=== PATIENT | male | born 1985 | race Caucasian/White ===

== ENCOUNTER 2019-04-10 14:50 | Outpatient (CLI) | payer MEDICARE | END 2019-04-10 14:51 | disposition home or self-care (01) | LOC: LAB.S 14:50 | PROVIDERS: ATTEND Family Medicine | DX: Z53.9 Procedure and treatment not carried out, unspecified reason (principal) ==

== ENCOUNTER 2019-04-11 08:00 | Outpatient (CLI) | payer MEDICARE ==
[2019-04-11 17:22] LABS: BASOPHILS # (AUTO) 0.1 10^3/uL (0.0-0.1); BASOPHILS % (AUTO) 0.6 %; EOSINOPHILS # (AUTO) 0.1 10^3/uL (0.0-0.7); EOSINOPHILS % (AUTO) 1.1 %; HGB - HEMOGLOBIN 15.5 g/dL (14.0-18.0); LYMPHOCYTES # (AUTO) 2.3 10^3/uL (1.5-3.5); LYMPHOCYTES % (AUTO) 28.3 %; MEAN CORPUSCULAR HEMOGLOBIN 30.3 pg (27.0-31.0); MEAN CORPUSCULAR VOLUME 91.8 fL (80.0-94.0); MEAN PLATELET VOLUME 10.4 fL (7.4-11.4); MONOCYTES # (AUTO) 0.5 10^3/uL (0.0-1.0); MONOCYTES % (AUTO) 6.4 %; NEUTROPHILS # (AUTO) 5.1 10^3/uL (1.5-6.6); PLT - PLATELET COUNT 358 10^3/uL (130-450); RED BLOOD COUNT 5.12 10^6/uL (4.70-6.10); WHITE BLOOD COUNT 8.1 x10^3/uL (4.8-10.8)
[2019-04-11 17:23] LABS: BILIRUBIN,URINE NEGATIVE (NEGATIVE); GLUCOSE, URINE (UA) 100 mg/dL (NEGATIVE); KETONES,URINE (UA) NEGATIVE (NEGATIVE); LEUKOCYTE ESTERASE, URINE NEGATIVE (NEGATIVE); NITRITE,URINE NEGATIVE (NEGATIVE); OCCULT BLOOD,URINE NEGATIVE (NEGATIVE); PROTEIN,URINE TRACE mg/dL (NEGATIVE); UROBILINOGEN,URINE 0.2 (NORMAL) E.U./dL (NORMAL)
[2019-04-11 17:43] LABS: CLARITY,URINE CLEAR (CLEAR)
[2019-04-11 18:03] LABS: HB2 TOTAL 15.6 g/dL; HEMOGLOBIN A1C 1.4 g/dL; HEMOGLOBIN A1C % 10.4 % (4.6-6.2)
[2019-04-11 18:19] LABS: ALBUMIN 4.2 g/dL (3.2-5.5); ALBUMIN/GLOBULIN RATIO 1.1 (1.0-2.2); ALKALINE PHOSPHATASE 87 IU/L (42-121); ALT ALANINE AMINOTRANSFERASE 47 IU/L (10-60); AST ASPARTATE AMINOTRANSFERASE 27 IU/L (10-42); BUN - BLOOD UREA NITROGEN 12 mg/dL (6-20); CALCIUM 9.1 mg/dL (8.5-10.3); CARBON DIOXIDE - CO2 27 mmol/L (21-32); CHLORIDE 101 mmol/L (101-111); CHOL/HDL RATIO 7.8 (<5.0); CHOLESTEROL 288 mg/dL; CREATININE 0.8 mg/dL (0.6-1.2); GFR - MDRD 110 (>89); GLUCOSE 215 mg/dL (70-100); HDL CHOLESTEROL 37 mg/dL; LDL CHOLESTEROL,CALCULATED 201 mg/dL; LDL/HDL RATIO 5.4 (<3.6); SODIUM 137 mmol/L (135-145); VLDL CHOLESTEROL 50 mg/dL
== END 2019-04-11 23:59 | disposition home or self-care (01) ==
LOC: LAB.S 08:00
PROVIDERS: ATTEND Family Medicine
DX: I10 Essential (primary) hypertension (principal); Q23.1 Congenital insufficiency of aortic valve; E66.9 Obesity, unspecified
CPT/HCPCS: 36415; 80053; 80061; 81001; 81003; 83036; 83721; 84443; 85025; 87086

== ENCOUNTER 2019-06-21 16:20 | Outpatient (CLI) | payer SELFPAY | END 2019-06-21 16:21 | disposition home or self-care (01) | LOC: COV 16:20 | PROVIDERS: ATTEND Family Medicine | DX: R05 Cough (principal); R50.9 Fever, unspecified | CPT/HCPCS: 81599 ==

== ENCOUNTER 2020-06-28 02:32 | Outpatient (CLI) | payer SELFPAY | END 2020-06-28 02:33 | disposition critical access hospital (66) | LOC: EMS 02:32 | DX: R06.02 Shortness of breath (principal); R06.2 Wheezing; R11.10 Vomiting, unspecified; R07.9 Chest pain, unspecified | CPT/HCPCS: A0425; A0429 ==

== ENCOUNTER 2020-06-28 03:09 | Emergency (ER) | payer SELFPAY ==
--- NOTE | 2020-06-28 03:20 | ED Physician Documentation ---
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 No: Fever, Hemoptysis, Wheezing, Bilateral edema, Unilateral edema Similar symptoms before: Has not had sx before Recently seen: Not recently seen - Additional information Additional information: BIBA. 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 He became dyspneic when walking to the bathroom and this rapidly worsened when he was walking back to his bedroom after using the bathroom. He also developed midline mid/upper anterior chest pain when walking back from the bathroom. He denies h/o similar symptoms. EMS found patient to be tachycardic and tachypneic with 89% pulse ox on room air. Review of Systems Constitutional: reports: Sweats. denies: Fever, Chills Eyes: reports: Reviewed and negative Ears: reports: Reviewed and negative Nose: reports: Reviewed and negative Throat: reports: Reviewed and negative Cardiac: reports: Chest pain / pressure. denies: Palpitations, Pedal edema, Calf pain Respiratory: reports: Dyspnea, Cough. denies: Hemoptysis, Wheezing GI: reports: Nausea, Vomiting. denies: Abdominal Pain : reports: Reviewed and negative Skin: reports: Reviewed and negative Musculoskeletal: reports: Reviewed and negative Neurologic: reports: Reviewed and negative PD PAST MEDICAL HISTORY - Past Medical History Past Medical History: No - Past Surgical History Past Surgical History: No - Present Medications Home Medications: Ambulatory Orders Medication Instructions Recorded Confirmed No Known Home Medications 06/28/20 06/28/20 - Allergies Allergies/Adverse Reactions: Allergies Allergy/AdvReac Type Severity Reaction Status Date / Time No Known Drug Allergies Allergy Verified 06/28/20 03:31 - Living Situation Living Arrangement: reports: At home - Social History Does the pt smoke?: No PD ED PE NORMAL - Vitals Vital signs reviewed: Yes - General General: Alert and oriented X 3, Other (obese male that appears uncomfortable, diaphoretic and tachypneic. ) - HEENT HEENT: Moist mucous membranes - Neck Neck: Supple, no meningeal sign - Respiratory Respiratory: No respiratory distress - Abdomen Abdomen: Soft, Non tender, Non distended - Derm Derm: Normal color, Warm and dry - Extremities Extremities: No edema - Neuro Neuro: Alert and oriented X 3 PD ED PE EXPANDED - Cardiac Cardiac: Tachy, Regular Rhythm - Respiratory Respiratory: Rhonchi (bibasilar) Results - Vitals Vitals: Vital Signs - 24 hr 06/28/20 06/28/20 06/28/20 03:10 03:15 03:30 Temperature 36.8 C Heart Rate 141 H 133 H Respiratory 26 H 23 Rate Blood Pressure 225/158 H 218/149 H Blood Pressure 218/149 H [Left] Blood Pressure 199/139 H [Right] O2 Saturation 94 93 06/28/20 06/28/20 06/28/20 03:50 04:02 04:18 Temperature 36.9 C Heart Rate 126 H 115 H 109 H Respiratory 25 H 26 H 21 Rate Blood Pressure 218/149 H 199/139 H 177/132 H Blood Pressure [Left] Blood Pressure [Right] O2 Saturation 96 97 100 06/28/20 06/28/20 06/28/20 04:26 04:51 05:02 Temperature 36.8 C Heart Rate 111 H 111 H 97 Respiratory 22 20 20 Rate Blood Pressure 196/129 H 217/135 H 146/110 H Blood Pressure [Left] Blood Pressure [Right] O2 Saturation 95 96 97 06/28/20 06/28/20 06/28/20 05:10 05:19 05:20 Temperature Heart Rate 94 91 88 Respiratory 19 22 19 Rate Blood Pressure 154/112 H 148/106 H 158/114 H Blood Pressure [Left] Blood Pressure [Right] O2 Saturation 97 98 100 06/28/20 06/28/20 06/28/20 05:46 06:01 06:25 Temperature 36.7 C 36.1 C L Heart Rate 84 92 83 Respiratory 15 20 16 Rate Blood Pressure 153/103 H 154/113 H 154/113 H Blood Pressure [Left] Blood Pressure [Right] O2 Saturation 97 97 96 06/28/20 06/28/20 06/28/20 07:21 07:22 07:29 Temperature Heart Rate 93 87 88 Respiratory 16 16 15 Rate Blood Pressure 139/100 H 139/100 H 135/99 H Blood Pressure [Left] Blood Pressure [Right] O2 Saturation 99 97 97 06/28/20 06/28/20 07:30 08:13 Temperature Heart Rate 87 88 Respiratory 15 14 Rate Blood Pressure 135/99 H 153/99 H Blood Pressure [Left] Blood Pressure [Right] O2 Saturation 98 96 Oxygen O2 Source Room air Oxygen Flow Rate 4 - EKG (time done) No standard instances Rate: Rate (enter#) (141) Rhythm: Sinus tachycardia [place]: Normal Intervals: Normal [place] QRS: LVH Ischemia: ST elevation c/w repol Compare to prior EKG: Old EKG unavailable - Labs Labs: Laboratory Tests 06/28/20 06/28/20 06/28/20 03:20 03:36 03:36 WBC 13.2 H RBC 5.52 Hgb 16.3 Hct 47.9 MCV 86.8 MCH 29.5 MCHC 34.0 RDW 12.4 Plt Count 376 MPV 9.6 Neut # (Auto) 9.1 H Lymph # (Auto) 3.0 [place] # (Auto) 0.8 Eos # (Auto) 0.2 Baso # (Auto) 0.1 Absolute Nucleated RBC 0.00 Nucleated RBC % 0.0 Sodium 137 Potassium 3.6 Chloride 99 L Carbon Dioxide 24 Anion Gap 14.0 H BUN 21 H Creatinine 1.0 Estimated GFR (MDRD) 85 L Glucose 332 H Calcium 10.1 Total Bilirubin 0.9 AST 28 ALT 42 Alkaline Phosphatase 106 Troponin I High Sens B-Natriuretic Peptide Total Protein 8.9 H Albumin 4.5 Globulin 4.4 H Albumin/Globulin Ratio 1.0 Lipase 36 TSH Urine Color YELLOW Urine Clarity CLEAR Urine pH 7.0 Ur Specific [place] 1.020 Urine Protein 30 H Urine Glucose (UA) >=1000 H Urine Ketones NEGATIVE Urine Occult Blood NEGATIVE Urine Nitrite NEGATIVE Urine Bilirubin NEGATIVE Urine Urobilinogen 0.2 (NORMAL) Ur Leukocyte Esterase NEGATIVE Urine RBC None Seen Urine WBC 0-3 Ur Squamous Epith Cells RARE Squamous Amorphous Sediment Rare Urine Bacteria Rare Ur Microscopic Review INDICATED Urine Culture Comments NOT INDICATED Nasal Adenovirus (PCR) Nasal B. parapertussis DNA (PCR) Nasal Coronavir 229E PCR Nasal Coronavir HKU1 PCR Nasal Coronavir NL63 PCR Nasal Coronavir OC43 PCR Nasal Enterovir/Rhinovir PCR Nasal Influenza B PCR Nasal Influenza A PCR Nasal Parainfluen 1 PCR Nasal Parainfluen 2 PCR Nasal Parainfluen 3 PCR Nasal Parainfluen 4 PCR Nasal RSV (PCR) Nasal B.pertussis DNA PCR Nasal C.pneumoniae (PCR) Damir Human Metapneumo PCR Nasal M.pneumoniae (PCR) Nasal SARS-CoV-2 (PCR) Serum Ketones NEGATIVE 06/28/20 06/28/20 06/28/20 03:36 03:36 03:36 WBC RBC Hgb Hct MCV MCH MCHC RDW Plt Count MPV Neut # (Auto) Lymph # (Auto) [place] # (Auto) Eos # (Auto) Baso # (Auto) Absolute Nucleated RBC Nucleated RBC % Sodium Potassium Chloride Carbon Dioxide Anion Gap BUN Creatinine Estimated GFR (MDRD) Glucose Calcium Total Bilirubin AST ALT Alkaline Phosphatase Troponin I High Sens 19.9 H* B-Natriuretic Peptide 165 H Total Protein Albumin Globulin Albumin/Globulin Ratio Lipase TSH 3.80 Urine Color Urine Clarity Urine pH Ur Specific [place] Urine Protein Urine Glucose (UA) Urine Ketones Urine Occult Blood Urine Nitrite Urine Bilirubin Urine Urobilinogen Ur Leukocyte Esterase Urine RBC Urine WBC Ur Squamous Epith Cells Amorphous Sediment Urine Bacteria Ur Microscopic Review Urine Culture Comments Nasal Adenovirus (PCR) Nasal B. parapertussis DNA (PCR) Nasal Coronavir 229E PCR Nasal Coronavir HKU1 PCR Nasal Coronavir NL63 PCR Nasal Coronavir OC43 PCR Nasal Enterovir/Rhinovir PCR Nasal Influenza B PCR Nasal Influenza A PCR Nasal Parainfluen 1 PCR Nasal Parainfluen 2 PCR Nasal Parainfluen 3 PCR Nasal Parainfluen 4 PCR Nasal RSV (PCR) Nasal B.pertussis DNA PCR Nasal C.pneumoniae (PCR) Damir Human Metapneumo PCR Nasal M.pneumoniae (PCR) Nasal SARS-CoV-2 (PCR) Serum Ketones 06/28/20 03:37 WBC RBC Hgb Hct MCV MCH MCHC RDW Plt Count MPV Neut # (Auto) Lymph # (Auto) [place] # (Auto) Eos # (Auto) Baso # (Auto) Absolute Nucleated RBC Nucleated RBC % Sodium Potassium Chloride Carbon Dioxide Anion Gap BUN Creatinine Estimated GFR (MDRD) Glucose Calcium Total Bilirubin AST ALT Alkaline Phosphatase Troponin I High Sens B-Natriuretic Peptide Total Protein Albumin Globulin Albumin/Globulin Ratio Lipase TSH Urine Color Urine Clarity Urine pH Ur Specific [place] Urine Protein Urine Glucose (UA) Urine Ketones Urine Occult Blood Urine Nitrite Urine Bilirubin Urine Urobilinogen Ur Leukocyte Esterase Urine RBC Urine WBC Ur Squamous Epith Cells Amorphous Sediment Urine Bacteria Ur Microscopic Review Urine Culture Comments Nasal Adenovirus (PCR) NOT DETECTED Nasal B. parapertussis DNA (PCR) NOT DETECTED Nasal Coronavir 229E PCR NOT DETECTED Nasal Coronavir HKU1 PCR NOT DETECTED Nasal Coronavir NL63 PCR NOT DETECTED Nasal Coronavir OC43 PCR NOT DETECTED Nasal Enterovir/Rhinovir PCR NOT DETECTED Nasal Influenza B PCR NOT DETECTED Nasal Influenza A PCR NOT DETECTED Nasal Parainfluen 1 PCR NOT DETECTED Nasal Parainfluen 2 PCR NOT DETECTED Nasal Parainfluen 3 PCR NOT DETECTED Nasal Parainfluen 4 PCR NOT DETECTED Nasal RSV (PCR) NOT DETECTED Nasal B.pertussis DNA PCR NOT DETECTED Nasal C.pneumoniae (PCR) NOT DETECTED [place] Human Metapneumo PCR NOT DETECTED Nasal M.pneumoniae (PCR) NOT DETECTED Nasal SARS-CoV-2 (PCR) NOT DETECTED Serum Ketones - Rads (name of study) chest xray Radiology: Prelim report reviewed, See rad report angio chest CT Radiology: Prelim report reviewed, See rad report PD MEDICAL DECISION MAKING - ED course Complexity details: reviewed results, re-evaluated patient, considered differential, d/w patient ED course: patient is in acute distress on arrival with c/o ongoing anterior chest pain and dyspnea, with severe hypertension; he is also tachycardic and diaphoretic. Pulse ox initially lower 90s but dropped to as low as 87% on 2 liters NC oxygen; pulse ox improved when supplemental oxygen was increased to 4 liters/minute NC. Nitropaste 1" placed to ACW without improvement in hypertension. Subsequently given 40mg lasix. He is given 20mg labetalol and this resulted in dramatic improvement in vital signs, clinical appearance, and resolution of symptoms. CT chest negative for PE but "extensive abnormality within the bilateral lungs suggesting pulmonary edema" (per radiologist's interpretation). Case discussed with Dr. Kenney ([facility] hospitalist), recommends transfer for further evaluation which likely will include cardiac echo (echo services unavailable throughout the weekend at [facility]). Case d/w Dr. Leonardo (hospitalist at [place] [facility]), who accepts transfer to [facility]. - Critical Care Time(min): 40 Time Includes: Direct patient care, Reassess patient, Document care, Coordinate care, Medical consult, See progress note Data interpretation: Labs, Pulse ox, CXR, See progress note Procedures included in critical care time: See progress note Procedures excluded from critical care time: EKG, See progress note Departure - Departure Disposition: 02 Transfer Acute Care Hosp Clinical Impression: Hypertensive urgency Congestive heart failure Qualifiers: Heart failure type: unspecified Heart failure chronicity: unspecified Qualified Code(s): I50.9 - Heart failure, unspecified Condition: Stable Discharge Date/Time: 06/28/20 08:29
[2020-06-28] MEDS ORDERED: NITROGLYCERIN 2% PASTE TOP STA (03:21)
[2020-06-28] MEDS ORDERED: IOPAMIDOL-300 100 ML VIAL ONE (03:33)
[2020-06-28] MEDS ORDERED: SODIUM CHLORIDE 0.9% 1,000 ML IV STA (03:35)
[2020-06-28 03:44] LABS: BILIRUBIN,URINE NEGATIVE (NEGATIVE); GLUCOSE, URINE (UA) >=1000 mg/dL (NEGATIVE); KETONES,URINE (UA) NEGATIVE (NEGATIVE); LEUKOCYTE ESTERASE, URINE NEGATIVE (NEGATIVE); NITRITE,URINE NEGATIVE (NEGATIVE); OCCULT BLOOD,URINE NEGATIVE (NEGATIVE); PROTEIN,URINE 30 mg/dL (NEGATIVE); UROBILINOGEN,URINE 0.2 (NORMAL) E.U./dL (NORMAL)
[2020-06-28 03:46] LABS: CLARITY,URINE CLEAR (CLEAR)
[2020-06-28 03:48] LABS: BASOPHILS # (AUTO) 0.1 10^3/uL (0.0-0.1); BASOPHILS % (AUTO) 0.4 %; EOSINOPHILS # (AUTO) 0.2 10^3/uL (0.0-0.7); EOSINOPHILS % (AUTO) 1.1 %; HCT - HEMATOCRIT 47.9 % (42.0-52.0); HGB - HEMOGLOBIN 16.3 g/dL (14.0-18.0); LYMPHOCYTES % (AUTO) 22.7 %; MEAN CORPUSCULAR HEMOGLOBIN 29.5 pg (27.0-31.0); MEAN CORPUSCULAR VOLUME 86.8 fL (80.0-94.0); MEAN PLATELET VOLUME 9.6 fL (7.4-11.4); MONOCYTES # (AUTO) 0.8 10^3/uL (0.0-1.0); MONOCYTES % (AUTO) 5.7 %; NEUTROPHILS # (AUTO) 9.1 10^3/uL (1.5-6.6); NEUTROPHILS % (AUTO) 69.3 %; PLT - PLATELET COUNT 376 10^3/uL (130-450); RED BLOOD COUNT 5.52 10^6/uL (4.70-6.10); RED CELL DISTRIBUTION WIDTH 12.4 % (12.0-15.0); WHITE BLOOD COUNT 13.2 x10^3/uL (4.8-10.8)
[2020-06-28 03:57] LABS: ALBUMIN 4.5 g/dL (3.2-5.5); ALKALINE PHOSPHATASE 106 IU/L (42-121); ALT ALANINE AMINOTRANSFERASE 42 IU/L (10-60); AST ASPARTATE AMINOTRANSFERASE 28 IU/L (10-42); BILIRUBIN,TOTAL 0.9 mg/dL (0.2-1.0); BUN - BLOOD UREA NITROGEN 21 mg/dL (6-20); CALCIUM 10.1 mg/dL (8.5-10.3); CARBON DIOXIDE - CO2 24 mmol/L (21-32); CHLORIDE 99 mmol/L (101-111); GFR - MDRD 85 (>89); GLUCOSE 332 mg/dL (70-100); LIPASE 36 U/L (22-51); POTASSIUM 3.6 mmol/L (3.5-5.0); SODIUM 137 mmol/L (135-145); TOTAL PROTEIN 8.9 g/dL (6.7-8.2)
[2020-06-28 03:58] LABS: KETONES, SERUM (ACETEST) NEGATIVE (NEGATIVE)
[2020-06-28 04:01] LABS: AMORPHOUS SEDIMENT,UR Rare /LPF; BACTERIA,URINE Rare /HPF (None Seen); RBC,URINE None Seen /HPF (0-5); SQUAMOUS EPITHELIAL CELL,UR RARE Squamous (<= Few); WBC,URINE 0-3 /HPF (0-3)
[2020-06-28] MEDS ORDERED: FUROSEMIDE 40 MG/4 ML VIAL IVP STA (04:14)
[2020-06-28] MEDS ORDERED: IOPAMIDOL-300 100 ML VIAL IVP ONE (04:17)
[2020-06-28] MEDS ORDERED: LABETALOL VIAL 200 MG in SODIUM CHLORIDE 0.9% 160 ML IV STA (04:35)
[2020-06-28 04:38] LABS: CORONAVIRUS 229E-RESP PCR NOT DETECTED; CORONAVIRUS HKU1-RESP PCR NOT DETECTED
[2020-06-28 04:39] LABS: B. PARAPERTUSSIS- RESP PCR PAN NOT DETECTED; B. PERTUSSIS- RESP PCR PANEL NOT DETECTED; C. PNEUMONIAE- RESP PCR PANEL NOT DETECTED; CORONAVIRUS NL63-RESP PCR NOT DETECTED; CORONAVIRUS OC43-RESP PCR NOT DETECTED; HUMAN METAPNEUMOVIRUS NOT DETECTED; INFLUENZA A- RESP PCR PANEL NOT DETECTED; INFLUENZA B - RESP PCR PANEL NOT DETECTED; M. PNEUMONIAE- RESP PCR PANEL NOT DETECTED; PARAINFLUENZA VIRUS 1 NOT DETECTED; PARAINFLUENZA VIRUS 2 NOT DETECTED; PARAINFLUENZA VIRUS 3 NOT DETECTED; PARAINFLUENZA VIRUS 4 NOT DETECTED; RHINOVIRUS/ENTEROVIRUS NOT DETECTED; RSV- RESP PCR PANEL NOT DETECTED; SARS-CoV-2 -RESP PCR PANEL NOT DETECTED
[2020-06-28] MEDS ORDERED: LABETALOL 5 MG/1 ML 20 ML MDV ONE (04:43)
[2020-06-28] MEDS ORDERED: LABETALOL 20 MG/4 ML SYRINGE IVP STA (04:47)
--- OUTSIDE RECORDS SUMMARY | 2020-06-28 06:01 | EXTERNAL MEDICAL SUMMARY RPT | Continuity of Care Document ---
:1985 Demographics Phone Unavailable Preferred Language Unknown Marital Status Unknown Confucianism Affiliation Unknown Race Unknown Ethnic Group Unknown Author Organization [facility] Address [address] [id number] Phone Social History date description facility [phone]
--- NOTE | 2020-06-28 07:41 | CT Report ---
PROCEDURE: ANGIO CHEST W/WO INDICATIONS: Dyspnea, chest pain CONTRAST: IV CONTRAST: Isovue 300 ml: 100 PO CONTRAST: *NO PO CONTRAST TECHNIQUE: After the administration of intravenous contrast, 2 mm thick sections acquired from the pulmonary api kathryn to the posterior costophrenic angles. 3-dimensional maximum intensity projection (MIP) coronal a nd sagittal reformats were then acquired through the thorax. For radiation dose reduction, the follow ing was used: automated exposure control, adjustment of mA and/or kV according to patient size. COMPARISON: None FINDINGS: Image quality: Excellent. Pulmonary arteries: Normal caliber main pulmonary trunk. No central or proximal urinary artery fillin g defect. Respiratory motion artifact limits fine anatomic detail and precludes exclusion of small carrillo bsegmental pulmonary emboli. Lungs and pleura: Bilateral interlobular septal thickening with bilateral predominantly central groun dglass airspace opacity. No focal consolidation or air bronchograms. Mediastinum: Overall heart size is within normal limits. Suggestion of at least mild left ventricular thickening. No pericardial effusion. No findings of right heart strain. Normal caliber thoracic aort a. No threshold enlarged mediastinal or hilar lymph node. Bones and chest wall: Known threshold enlarged axillary lymph node. No suspicious lytic or blastic os seous lesion in the chest wall. Abdomen: Visualized upper abdominal solid organs appear normal in the early arterial phase of enhanc ement. IMPRESSION: No findings of central or large pulmonary embolism. Respiratory motion artifact occludes exclusion of small subsegmental pulmonary embolism. Extensive bilateral groundglass and interstitial opacity. Differential considerations include pulmona ry edema, infection, or another acute interstitial process. Clinical correlation will be needed. Mildly thickened left ventricular wall which may represent hypertrophic cardiomyopathy. No significant change from pulmonary report. Reviewed by: Roscoe Bishop MD on 06/28/2020 7:40 AM PDT Approved by: Roscoe Bishop MD on 06/28/2020 7:40 AM PDT Station ID: [id number]
--- NOTE | 2020-06-28 07:45 | XRAY Report ---
PROCEDURE: Chest 1 View X-Ray INDICATIONS: Chest pain, dyspnea TECHNIQUE: One view of the chest was acquired. COMPARISON: None FINDINGS: Cardiomediastinal silhouette is enlarged, potentially due to AP technique. Increased interstitial and airspace opacities in both lungs, right greater than left. No visible pleural effusion or findings o f pneumothorax. IMPRESSION: Increased cardiomediastinal silhouette, which may be due to technique or borderline cardiomegaly. Increased interstitial and airspace opacities in both lungs are most likely reflective of pulmonary e paige, although infection would cause a similar appearance. No significant change from preliminary report. Reviewed by: Roscoe Bishop MD on 06/28/2020 7:43 AM PDT Approved by: Roscoe Bishop MD on 06/28/2020 7:43 AM PDT Station ID: [id number]
[2020-06-28 08:14] VITALS: BP 153/99
== END 2020-06-28 08:29 | disposition short-term general hospital (02) ==
LOC: EDUNIT# → ED 03:09
DX: I16.0 Hypertensive urgency (principal); I11.0 Hypertensive heart disease with heart failure; I50.9 Heart failure, unspecified; E66.9 Obesity, unspecified; Z20.822 Contact with and (suspected) exposure to COVID-19
CPT/HCPCS: 0202U; 36415; 71045; 71275; 80053; 81001; 82009; 83690; 83880; 84443; 84484; 85025; 93005; 96361; 96374; 96375; 99285; 99291; A9270; Q9967; 81003; 87086

== ENCOUNTER 2020-06-28 08:31 | Outpatient (CLI) | payer SELFPAY | END 2020-06-28 08:32 | disposition short-term general hospital (02) | LOC: EMS 08:31 | PROVIDERS: ATTEND Emergency Medicine | DX: I16.0 Hypertensive urgency (principal); R50.9 Fever, unspecified | CPT/HCPCS: A0425; A0426 ==

== ENCOUNTER 2023-01-11 20:46 | Emergency (ER) | payer MEDICAID, MEDICARE ==
[2023-01-11 21:14] LABS: BASOPHILS % (AUTO) 0.5 %; EOSINOPHILS # (AUTO) 0.1 10^3/uL (0.0-0.7); EOSINOPHILS % (AUTO) 1.8 %; HCT - HEMATOCRIT 43.5 % (42.0-52.0); HGB - HEMOGLOBIN 13.8 g/dL (14.0-18.0); LYMPHOCYTES # (AUTO) 2.2 10^3/uL (1.5-3.5); MEAN CORPUSCULAR HEMOGLOBIN 26.1 pg (27.0-31.0); MEAN CORPUSCULAR HGB CONC 31.7 g/dL (32.0-36.0); MEAN CORPUSCULAR VOLUME 82.4 fL (80.0-94.0); MEAN PLATELET VOLUME 9.3 fL (7.4-11.4); MONOCYTES # (AUTO) 0.5 10^3/uL (0.0-1.0); MONOCYTES % (AUTO) 6.2 %; NEUTROPHILS # (AUTO) 4.9 10^3/uL (1.5-6.6); NEUTROPHILS % (AUTO) 62.1 %; PLT - PLATELET COUNT 328 10^3/uL (130-450); RED BLOOD COUNT 5.28 10^6/uL (4.70-6.10); RED CELL DISTRIBUTION WIDTH 15.2 % (12.0-15.0); WHITE BLOOD COUNT 7.9 x10^3/uL (4.8-10.8)
[2023-01-11 21:30] LABS: ALBUMIN 4.1 g/dL (3.2-5.5); ALBUMIN/GLOBULIN RATIO 1.2 (1.0-2.2); BILIRUBIN,TOTAL 0.6 mg/dL (0.2-1.0); CALCIUM 9.5 mg/dL (8.5-10.3); CREATININE 1.4 mg/dL (0.6-1.3); POTASSIUM 3.8 mmol/L (3.5-4.5); TOTAL PROTEIN 7.6 g/dL (6.4-8.9)
[2023-01-11] MEDS ORDERED: LABETALOL 20 MG/4 ML SYRINGE IVP STA (21:44)
[2023-01-11] MEDS ORDERED: METOPROLOL TARTRATE 50 MG TABLET PO STA (21:44)
--- NOTE | 2023-01-11 22:36 | ED Physician Documentation ---
History of Present Illness - Stated complaint Stated Complaint: LT SIDE NUMBNESS - Chief complaint Chief Complaint: General - History obtained from History obtained from: Patient - Additonal information Additional information: The patient comes to the emergency department chief complaint of episode of left-sided numbness that started couple of hours ago while he was driving his car. He states he had not been feeling any different than usual and the episodes surprised him. He states he had some left facial numbness too but that has since resolved. The patient denies any weakness or difficulty speaking or swallowing. No visual changes. The patient has never had strokelike symptoms before, but was found to have An AK about a year ago. At that time he was also diagnosed with hypertension and diabetes and started on meds for both. However, he states his insurance did not cover the medicines and he could not afford to pay arrieta for them, so he stopped taking his meds. He states he has a history of some slowing of his kidneys, as well. He does not know how high his blood sugar or his blood pressures have been running at home. He denies chest pain or shortness of breath. No change in urine output. He has been able to ambulate, but states that his leg feels "heavy". PD PAST MEDICAL HISTORY - Past Surgical History Past Surgical History: No HEENT: Other - Present Medications Home Medications: Ambulatory Orders Medication Instructions Recorded Confirmed Metoprolol Succinate 100 mg PO DAILY #30 tab 01/12/23 metFORMIN [Glucophage] 500 mg PO BIDWM #60 tablet 01/12/23 - Allergies Allergies/Adverse Reactions: Allergies Allergy/AdvReac Type Severity Reaction Status Date / Time No Known Drug Allergies Allergy Verified 01/11/23 21:00 - Social History Does the pt smoke?: No Smoking Status: Never smoker Does the pt drink ETOH?: No Does the pt have substance abuse?: No - Immunizations Immunizations are current?: Yes - POLST Patient has POLST: No PD ED PE NORMAL - Vitals Vital signs reviewed: Yes - General General: Alert and oriented X 3, No acute distress, Well developed/nourished - HEENT HEENT: Atraumatic, PERRL, EOMI, Moist mucous membranes - Neck Neck: Supple, no meningeal sign - Cardiac Cardiac: RRR, No murmur, Strong equal pulses - Respiratory Respiratory: No respiratory distress, Clear bilaterally - Abdomen Abdomen: Soft, Non tender, Non distended - Derm Derm: Normal color, Warm and dry, No rash - Extremities Extremities: No deformity, No edema - Neuro Neuro: Alert and oriented X 3, tuber helper 2-12 intact, No motor deficit, No sensory deficit, Normal speech, Other (The patient has equal sensation on both arms and both legs. He has 5/5 strength in both legs but slightly decreased on the left compared to the right. ) - Psych Psych: Normal mood, Normal affect Results - Vitals Vitals: Vital Signs - 24 hr 01/11/23 01/11/23 01/11/23 20:49 21:42 22:49 Temperature 36.6 C Heart Rate 116 H 111 H 101 H Respiratory 18 14 18 Rate Blood Pressure 241/149 H 238/145 H 173/133 H O2 Saturation 99 98 95 01/11/23 01/12/23 01/12/23 23:31 00:38 01:48 Temperature Heart Rate 84 78 70 Respiratory 19 18 16 Rate Blood Pressure 189/127 H 189/120 H 183/124 H O2 Saturation 97 99 98 01/12/23 01/12/23 01/12/23 02:36 04:00 06:00 Temperature Heart Rate 70 69 69 Respiratory 16 12 18 Rate Blood Pressure 191/122 H 181/120 H 182/131 H O2 Saturation 98 99 98 Oxygen O2 Source Room air - EKG (time done) 4 EKG releavant findings:: EKG personally interpreted by author of this note. Relevant findings are: Rate: Rate (enter#) (102) Rhythm: Sinus tachycardia, FAVIOLA Crosby: Normal Intervals: Normal [place], Prolonged QT (Borderline) QRS: LVH Ischemia: Other (Anterior ST elevation, likely due to LVH) - Labs Labs: Laboratory Tests 01/11/23 01/11/23 21:08 21:08 WBC 7.9 RBC 5.28 Hgb 13.8 L Hct 43.5 MCV 82.4 MCH 26.1 L MCHC 31.7 L RDW 15.2 H Plt Count 328 MPV 9.3 Neut # (Auto) 4.9 Lymph # (Auto) 2.2 [place] # (Auto) 0.5 Eos # (Auto) 0.1 Baso # (Auto) 0.0 Absolute Nucleated RBC 0.00 Nucleated RBC % 0.0 Sodium 138 Potassium 3.8 Chloride 102 Carbon Dioxide 27 Anion Gap 9.0 BUN 17 Creatinine 1.4 H Estimated GFR (MDRD) 56 L Glucose 322 H Calcium 9.5 Total Bilirubin 0.6 AST 12 ALT 13 Alkaline Phosphatase 85 Total Protein 7.6 Albumin 4.1 Globulin 3.5 Albumin/Globulin Ratio 1.2 Lipase 68 PD Medical Decision Making - ED course Complexity details: reviewed results, re-evaluated patient, considered differential, d/w patient ED course: The patient was fairly well-appearing in the emergency department, and he had minimal findings on neurologic exam, despite his perception of numbness. However, his blood pressure was extremely high, in the 230s to 240s over 140s. Given that he was experiencing some neurologic symptoms, I did given an IV dose of labetalol, as well as an oral dose of metoprolol. He was worked up with labs, including CBC and ER abdominal panel, as well as EKG, and CT/CTA of the head and neck. The patient on reevaluation was feeling much better and reported his symptoms were completely gone after blood pressure came down. He was found to have a pressure of 160s over 90s, this this did fluctuate somewhat throughout his stay in the emergency department. However, he remained asymptomatic throughout the remainder of his stay up till this dictation time. The patient's laboratory studies showed a creatinine of 1.4 with BUN of 17 and glucose of 322. His CT of the head showed no evidence of intracranial hemorrhage. 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 At this point in time, the plan is for patient to get the MRI of his brain. He will be signed out to the oncoming emergency physician Dr. Boudreaux at change of shift. Ultimately, he will need to have some sort of outpatient treatment for his ou [id number] blood pressure and diabetes, though it is not clear whether the patient will comply with the treatment. He has been given resources here in the emergency department for assistance with his meds medical care, as well as counseled regarding the need to reenroll in Medicaid and state insurance so that he can get coverage. Departure - Departure Clinical Impression: Uncontrolled hypertension Uncontrolled diabetes mellitus Qualifiers: Glycemic state: with hyperglycemia Prescriptions: metFORMIN [Glucophage] 500 mg PO BIDWM #60 tablet Metoprolol Succinate 100 mg PO DAILY #30 tab Forms: PCP List
--- NOTE | 2023-01-11 23:34 | CT Report ---
PROCEDURE: HEAD WO INDICATIONS: numbness L arm/leg, extreme HTN TECHNIQUE: Noncontrast 4.5 mm thick angled axial sections acquired from the foramen magnum to the vertex. For r adiation dose reduction, the following was used: automated exposure control, adjustment of mA and/or kV according to patient size. COMPARISON: None. FINDINGS: Image quality: Excellent. CSF spaces: Basal cisterns are patent. No extra-axial fluid collections. Ventricles are normal in size and shape. Brain: No midline shift. No intracranial masses or hemorrhage. There is cortical hypodensity in th e paramedian left frontal lobe with underlying extra-axial dilatation of the frontal horn of the late ral ventricle. There is a small lacunar infarct in the body of the right caudate, and several small l eft internal capsule lacunar infarcts. Tiny right basal ganglia lacunar infarct. Hurd-white matter in terface is normal. Skull and face: Calvarium and visualized facial bones are intact, without suspicious lesions. Sinuses: Small mucous retention cyst or polyp right maxillary sinus and mild ethmoid and sphenoid muc osal thickening. IMPRESSION: 1. No CT evidence of acute intracranial hemorrhage. 2. 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 If there is concern for an acute process, MR imaging is recommended. Reviewed by: Emily Gaona MD on 01/11/2023 11:32 PM PDT Approved by: Emily Gaona MD on 01/11/2023 11:32 PM PDT Station ID: [id number]
[2023-01-11] MEDS ORDERED: ASPIRIN CHEW 81 MG TABLET PO STA (23:57)
--- NOTE | 2023-01-12 01:26 | CT Report ---
PROCEDURE: CT Angio Head/Neck INDICATIONS: numbness L arm/leg, extreme hypertension TECHNIQUE: After the administration of intravenous contrast, 1 mm thick sections acquired from the aortic arch t hrough the [place]. 3-dimensional yzdlczl-uzdrdpfea-klfnxxekxv (MIP) and/or volume renderin g reformats were acquired of the central intracranial vasculature and neck separately. For radiation dose reduction, the following was used: automated exposure control, adjustment of mA and/or kV acco rding to patient size. CONTRAST: 100 cc Omnipaque 300 COMPARISON: None. FINDINGS: Image quality: Diagnostic. HEAD CT ANGIOGRAPHY: Anterior circulation: Intracranial internal carotid arteries are symmetrically diminutive in size, d emonstrates mild to moderate atherosclerotic calcification, but are patent. Right smaller than left.. The right A1 segment is hypoplastic. Both anterior cerebral arteries arise from the left A1 segment. The proximal right-sided A2 segment is markedly diminutive. The distal left anterior cerebral artery is extremely diminutive.. The flow within the middle cerebral arteries is normal and symmetric. No aneurysms are seen. Posterior circulation: Visualized portions of the vertebral arteries demonstrate normal caliber, and join to form a normal appearing basilar artery. The right P1 segment is a origin from the inte rnal carotid artery. The right P2 segment is asymmetrically diminutive. No aneurysms are seen. NECK CT ANGIOGRAPHY: Carotid system: The great vessels demonstrate a conventional anatomy as they arise from the aortic a rch. The origins of the common carotid arteries appear patent. The common carotid arteries demonstr ate normal caliber and courses. The bifurcation regions are both widely patent. The internal caroti d arteries demonstrate normal calibers and courses. Posterior circulation: The origins of the vertebral arteries both appear widely patent. The more carrillo perior extracranial portions of both vertebral arteries also demonstrate normal courses and calibers. They join to form a normal appearing basilar artery. Soft tissues: Visualized neck soft tissues demonstrate no suspicious abnormalities. Bones: No suspicious bony lesions. Visualized cervical spine appears normally aligned. IMPRESSION: 1. Diminutive intracranial vasculature, specifically both internal carotid arteries. 2. There is spasm or diffuse narrowing involving the proximal right anterior cerebral artery and righ t posterior cerebral artery. 3. No evidence of carotid or vertebral artery dissection. 4. Given noncontrast head CT findings of microvascular ischemic change, MR imaging is recommended giv en patient's symptoms. The estimate of stenosis included in the report of the imaging study was calculated using the NASCET method Reviewed by: Emily Gaona MD on 01/12/2023 1:25 AM PDT Approved by: Emily Gaona MD on 01/12/2023 1:25 AM PDT Station ID: [id number]
[2023-01-12] MEDS ORDERED: iohexoL-300 100 ML VIAL IVP ONE (03:47)
[2023-01-12] MEDS ORDERED: METOPROLOL TARTRATE 50 MG TABLET PO STA (06:49)
[2023-01-12] MEDS ORDERED: GADOTERATE MEGLUMINE 10 MMOL/20 ML VIAL ONE (10:15)
[2023-01-12] MEDS ORDERED: GADOTERATE MEGLUMINE 5 MMOL/10 ML VIAL ONE (10:15)
[2023-01-12] MEDS: GADOTERATE MEGLUMINE 10 MMOL/20 ML VIAL IVP ONE ×2 (10:36)
--- NOTE | 2023-01-12 11:37 | MRI Report ---
PROCEDURE: MRI brain with and without contrast INDICATIONS: L side numb, HTN, diffuse R arterial narrowing TECHNIQUE: Multiplanar multisequential MR images of the brain were obtained before and after intrave nous contrast administration. COMPARISON: None. FINDINGS: CSF spaces: Basal cisterns are patent. No extra-axial fluid collections. Ventricles are normal in size and shape. Brain: Atrophy and white matter chronic ischemic change advanced for patient's age. Focal restricted diffusion noted in the right periventricular deep white matter measuring 1.3 x 0.6 cm. Enhancement. Old lacunar infarcts noted in the bilateral basal ganglia, left greater than right. Old lacunar infar ct noted in the right thalamus as well. Skull and face: Calvarial marrow is normal in signal. Orbits appear normal. Sinuses: Mucosal thickening in right sphenoid sinus measures up to 5 mm. IMPRESSION: Acute right periventricular deep white matter infarct. No mass effect. Old bilateral basal ganglia lacunar infarcts, atrophy and white matter chronic ischemic change, advan rosemary for patient's age. Right sphenoid mucosal sinus disease Reviewed by: Jayesh Gamboa MD on 01/12/2023 10:35 AM USMAN Approved by: Jayesh Gamboa MD on 01/12/2023 10:35 AM USMAN Station ID: [id number]
[2023-01-12] MEDS ORDERED: CLOPIDOGREL 75 MG TABLET PO STA (12:35)
--- NOTE | 2023-01-12 12:42 | ED Physician Documentation ---
ED Addendum - Addendum Addendum: 01/12/23 12:40 The patient was here awaiting MRI of the head this morning for concern of stroke. He had had left-sided weakness with difficulty walking. He states his symptoms have improved quite a bit and having just some mild residual weakness at this point. He did have the brain MRI which showed a small stroke in the deep periventricular white matter that looked acute. The patient is feeling able to be discharged and feels he is able to walk and function. He has not been on blood pressure nor blood sugar medicines. He states he is willing to start medication now. I will also give him a referral to clinics [place]. I will send prescriptions to the [facility] in [place] at his direction. We will include blood pressure medication, cholesterol medicine, blood sugar metformin and as well as aspirin and Plavix with the Plavix being intended for 30 days. Disposition: The patient discharged home in stable condition. Diagnoses: 1. Left-sided weakness acute 2. Small CVA 3. Hyperglycemia 4. Hypertension
[2023-01-12 12:53] VITALS: BP 184/130; O2SAT 96
== END 2023-01-12 12:53 | disposition home or self-care (01) ==
LOC: ED 20:46
DX: E11.65 Type 2 diabetes mellitus with hyperglycemia (principal); I63.9 Cerebral infarction, unspecified; R29.810 Facial weakness; I10 Essential (primary) hypertension; Z79.84 Long term (current) use of oral hypoglycemic drugs
CPT/HCPCS: 36415; 70450; 70496; 70498; 70553; 80053; 83690; 85025; 93005; 96374; 99284; A9270; A9575; Q9967

== ENCOUNTER 2023-03-02 22:22 | Outpatient (CLI) | payer MEDICAID | END 2023-03-02 22:23 | disposition critical access hospital (66) | LOC: EMS 22:22 | DX: R06.03 Acute respiratory distress (principal); R60.0 Localized edema | CPT/HCPCS: A0425; A0427; A0999 ==

== ENCOUNTER 2023-03-02 22:55 | Emergency (ER) | payer MEDICAID ==
[2023-03-02] MEDS ORDERED: fentaNYL 2,500 MCG in SODIUM CHLORIDE 0.9% 200 ML IV SCH (23:00)
[2023-03-02] MEDS ORDERED: fentaNYL 2,500 MCG in SODIUM CHLORIDE 0.9% 200 ML IV STA (23:06)
[2023-03-02] MEDS ORDERED: ETOMIDATE 40 MG/20 ML VIAL IVP STA (23:07)
[2023-03-02] MEDS ORDERED: ETOMIDATE 40 MG/20 ML VIAL IVP ONE (23:12)
[2023-03-02 23:28] LABS: BASOPHILS # (AUTO) 0.1 10^3/uL (0.0-0.1); BASOPHILS % (AUTO) 0.9 %; EOSINOPHILS # (AUTO) 0.2 10^3/uL (0.0-0.7); EOSINOPHILS % (AUTO) 1.1 %; HGB - HEMOGLOBIN 12.8 g/dL (14.0-18.0); LYMPHOCYTES # (AUTO) 2.4 10^3/uL (1.5-3.5); LYMPHOCYTES % (AUTO) 17.6 %; MEAN CORPUSCULAR HEMOGLOBIN 25.6 pg (27.0-31.0); MEAN CORPUSCULAR HGB CONC 29.1 g/dL (32.0-36.0); MEAN PLATELET VOLUME 9.7 fL (7.4-11.4); MONOCYTES # (AUTO) 0.7 10^3/uL (0.0-1.0); MONOCYTES % (AUTO) 5.5 %; PLT - PLATELET COUNT 403 10^3/uL (130-450); RED CELL DISTRIBUTION WIDTH 16.3 % (12.0-15.0); WHITE BLOOD COUNT 13.5 x10^3/uL (4.8-10.8)
[2023-03-02] MEDS ORDERED: ALBUTEROL NEB 2.5 MG/3 ML INH ONE (23:32)
[2023-03-02 23:37] LABS: PARTIAL THROMBOPLASTIN TIME 29.6 secs (24.9-33.3)
--- NOTE | 2023-03-02 23:37 | ED Physician Documentation ---
History of Present Illness - Stated complaint Stated Complaint: RESPIRATORY DISTRESS - History obtained from History obtained from: EMS - Additonal information Additional information: 38yM with pmh KS, HTN, DM, p/w acute SOA tonight, found to be in respiratory distress with ems. o2 sat 70% RA on scene. patient did not tolerate cpap well and was intubated in the field. further history limited by patient acuity Review of Systems Unable to obtain: Other (unable to obtain 2/2 patient intubated) PD PAST MEDICAL HISTORY - Past Surgical History Past Surgical History: No HEENT: Other - Present Medications Home Medications: Ambulatory Orders Medication Instructions Recorded Confirmed Aspirin [Aspirin EC] 81 mg PO DAILY #60 tab 01/12/23 Atorvastatin [Lipitor] 10 mg PO DAILY 30 Days #30 tablet 01/12/23 Clopidogrel [Plavix] 75 mg PO DAILY 30 Days #30 tablet 01/12/23 Metoprolol Succinate 100 mg PO DAILY #30 tab 01/12/23 metFORMIN [Glucophage] 500 mg PO BIDWM #60 tablet 01/12/23 - Allergies Allergies/Adverse Reactions: Allergies Allergy/AdvReac Type Severity Reaction Status Date / Time No Known Drug Allergies Allergy Verified 01/11/23 21:00 - Social History Does the pt smoke?: No Smoking Status: Never smoker Does the pt drink ETOH?: No Does the pt have substance abuse?: No - Immunizations Immunizations are current?: Yes - POLST Patient has POLST: No PD ED PE NORMAL - Vitals Vital signs reviewed: Yes - General General: Other (intubated, paralyzed) - HEENT HEENT: Atraumatic, PERRL, EOMI, Other (intubated. ett 26 at the lip) - Neck Neck: Supple, no meningeal sign - Cardiac Cardiac: Other (tachycardic rate, regular rhythm) - Respiratory Respiratory: Other (BL crackles, rales) - Abdomen Abdomen: Non tender, Non distended - Derm Derm: Other (flushed and sweating) - Extremities Extremities: No deformity, Other (BL 2+ LE edema) - Psych Psych: Other (intubated, paralyzed) Results - Vitals Vitals: Oxygen O2 Source Nasal cannula - EKG (time done) 2318 EKG releavant findings:: EKG personally interpreted by author of this note. Relevant findings are: Rate: Rate (enter#) (148) Rhythm: Sinus tachycardia Intervals: Normal MA QRS: Normal Ischemia: Q waves (anterior leads), Other (anterior JOSE) - Labs Labs: Laboratory Tests 03/02/23 03/02/23 03/02/23 23:15 23:15 23:15 WBC 13.5 H RBC 5.00 Hgb 12.8 L Hct 44.0 MCV 88.0 MCH 25.6 L MCHC 29.1 L RDW 16.3 H Plt Count 403 MPV 9.7 Neut # (Auto) 10.0 H Lymph # (Auto) 2.4 [place] # (Auto) 0.7 Eos # (Auto) 0.2 Baso # (Auto) 0.1 Absolute Nucleated RBC 0.00 Nucleated RBC % 0.0 PT 14.7 H INR 1.3 H APTT 29.6 Troponin I High Sens 37.4 H* PD Medical Decision Making - ED course ED course: d/w [facility] automatic pinsetter adjuster financial institution branch manager and ED doc financial institution branch manager at [facility] who accept in transfer. plan to send ekg over now. lifeflight activated. nitro drip intiated at 100mcg/min with BP check every 3 minutes. d/w lifeflight who will go up to 400ucg / min checking BP at frequent intervals. DDX includes, APE, KS, PE, aortic dissection. dissection unlikely given strong and equal peripheral pulses. Patient has florid pulmonary edema on POCUS and bedside echocardiogram shows diminished heart squeeze. I initially ordered CTA to r/o PE but patient will not easily be able to go in our portable CT scanner while intubated. In order to prevent delay of care we will transfer to higher level facility for cardiology eval and possible CT. given most likely diagnosis of acute pulmonary edema 2/2 KS will hold off on CT PE study for now. considered tenecteplase but patient's BP and HR are holding steady at this time and will be able to be evaluated by automatic pinsetter adjuster for potential supervisor labor gang emergently so will hold off. - Critical Care Time(min): 50 Time Includes: Direct patient care, Review records, Reassess patient, Document care, Coordinate care, Medical consult, See progress note Data interpretation: Labs, CXR Procedures included in critical care time: Peripheral IV, Blood draw, Ventilator mgmt Procedures excluded from critical care time: Echocardiogram (POCUS) Departure - Departure Disposition: Transfer Acute Care Hosp Clinical Impression: Acute pulmonary edema Condition: Stable
[2023-03-02 23:41] LABS: INR 1.3 (0.8-1.2); PT - PROTHROMBIN TIME 14.7 secs (9.9-12.6)
[2023-03-02] MEDS ORDERED: fentaNYL 100 MCG/2 ML VIAL ONE (23:42)
[2023-03-02] MEDS ORDERED: NITROGLYCERIN 50 MG/250 ML 50 MG/250 ML BOTTLE IV SCH (23:45)
--- NOTE | 2023-03-03 00:01 | XRAY Report ---
PROCEDURE: Chest 1 View X-Ray INDICATIONS: soa, line placement TECHNIQUE: One view of the chest was acquired. COMPARISON: 06/28/2020. FINDINGS: Surgical changes and devices: Endotracheal tube is in place with the distal tip projecting approxima tely 4.1 cm above the chanel. Lungs and pleura: Diffuse airspace opacities of the bilateral hemithoraces. No pneumothorax. No dens e consolidation. Possible small left pleural effusion. Mediastinum: Mediastinal contours appear normal. Heart size is normal. Bones and chest wall: No suspicious bony lesions. Overlying soft tissues appear unremarkable. IMPRESSION: Endotracheal tube is in place with distal tip projecting approximately 4.1 cm above the chanel. Diffuse bilateral airspace opacities with suspected small left pleural effusion. Reviewed by: Luis Angel Gracia MD on 03/03/2023 12:00 AM PST Approved by: Luis Angel Gracia MD on 03/03/2023 12:00 AM [facility] Station ID: [id number]
[2023-03-03 00:13] LABS: ALBUMIN 3.7 g/dL (3.2-5.5); ALBUMIN/GLOBULIN RATIO 1.1 (1.0-2.2); ALKALINE PHOSPHATASE 91 IU/L (42-121); ALT ALANINE AMINOTRANSFERASE 19 IU/L (10-60); AST ASPARTATE AMINOTRANSFERASE 22 IU/L (10-42); BILIRUBIN,TOTAL 1.3 mg/dL (0.2-1.0); BUN - BLOOD UREA NITROGEN 18 mg/dL (6-20); CALCIUM 8.7 mg/dL (8.5-10.3); CARBON DIOXIDE - CO2 24 mmol/L (21-32); CHLORIDE 97 mmol/L (101-111); CREATININE 1.9 mg/dL (0.6-1.3); ETOH - ETHANOL < 10.0 mg/dL; GFR - MDRD 40 (>89); GLUCOSE 333 mg/dL (74-104); LIPASE 48 U/L (11-82); POTASSIUM 3.3 mmol/L (3.5-4.5); SODIUM 134 mmol/L (135-145)
== END 2023-03-03 00:25 | disposition short-term general hospital (02) ==
LOC: EDUNIT# → ED 22:55
DX: J81.0 Acute pulmonary edema (principal); I10 Essential (primary) hypertension; E11.9 Type 2 diabetes mellitus without complications; Z79.84 Long term (current) use of oral hypoglycemic drugs
CPT/HCPCS: 36415; 71045; 80053; 80320; 83690; 83880; 84484; 85025; 85610; 85730; 86850; 86900; 86901; 93005; 94002; 96374; 96375; 99291; J3010